=== PATIENT | female | born 1935 | race Caucasian/White ===

== ENCOUNTER → 2020-11-05 | Outpatient (CLI) | payer OTHER, MEDICARE ==
[~2020-11-05] MED LIST: ALLEGRA ALLERG180 MG PO; ASPIRIN EC81 MG PO; ATORVASTATIN CA40 MG PO; COZAAR100 MG PO; DAILY VITAMIN1 EAC2 PO; ELIQUIS2.5 MG PO; ENDOCET 10-3251 EACH PO; HYDROCODON-ACE1 EAC2 PO; LASIX20 MG PO; NORCO 10-325 T1 EACH PO; NORCO 7.5-3251 EACH PO; NORVASC 5 MG TAB5 MG PO; PERCOCET 10-321 EACH PO; PERCOCET 5-3251 EACH PO; ST. JOSEPH ASPI81 MG PO; TOPROL XL50 MG PO; VALSARTAN160 MG PO; VITAMIN D32000 UNI1 PO
[2020-11-05 11:22] LABS: HEMOGLOBIN 15.2 gm/dl (12.3-15.3); RED BLOOD COUNT 4.73 M/UL (4.00-5.10); WHITE BLOOD COUNT 7.5 K/UL (4.5-11.0)
== END ==
LOC: OPSV2 10:23 → EDSTATUS 10:30
PROVIDERS: Orthopaedic Surgery
DX: Z01.812 Encounter for preprocedural laboratory examination (principal); Z11.52 Encounter for screening for COVID-19; M16.12 Unilateral primary osteoarthritis, left hip
CPT/HCPCS: 36415; 80048; 81001; 85025; 87081; 93005

== ENCOUNTER → 2020-11-18 | Outpatient (CLI) | payer OTHER, MEDICARE | LOC: LAB 10:18 | PROVIDERS: Orthopaedic Surgery | DX: M16.12 Unilateral primary osteoarthritis, left hip (principal); I10 Essential (primary) hypertension | CPT/HCPCS: 36415; 80048; 86850; 86900; 86901 ==

== ENCOUNTER 2020-11-19 07:14 | Day surgery (SDC) | payer OTHER, MEDICARE ==
[~2020-11-19] VITALS: Ht 165.1 cm; Wt 77.1 kg
[~2020-11-19 07:14] MED LIST changes: -ASPIRIN EC81 MG PO; -DAILY VITAMIN1 EAC2 PO; -ENDOCET 10-3251 EACH PO; -HYDROCODON-ACE1 EAC2 PO
[2020-11-19] MEDS ORDERED: DAILY VITAMIN1 EAC2 PO (08:13)
[2020-11-19] MEDS ORDERED: HYDROCODON-ACE1 EAC2 PO (08:14)
[2020-11-19] MEDS ORDERED: ENDOCET 10-3251 EACH PO (12:00)
[2020-11-19] MEDS ORDERED: ELIQUIS2.5 MG PO (12:00)
[2020-11-20 06:30] LABS: RED BLOOD COUNT 4.11 M/UL (4.00-5.10); WHITE BLOOD COUNT 12.9 K/UL (4.5-11.0)
[2020-11-20] MEDS ORDERED: ASPIRIN EC81 MG PO (08:40)
== END 2020-11-20 13:24 | disposition home or self-care (01) ==
LOC: OR 07:14 → M/S 14:50 → OR 11-20 13:24
PROVIDERS: Orthopaedic Surgery
DX: M16.12 Unilateral primary osteoarthritis, left hip (principal); I12.9 Hypertensive chronic kidney disease with stage 1 through stage 4 chronic kidney disease, or unspecified chronic kidney disease; N18.30 Chronic kidney disease, stage 3 unspecified; E78.5 Hyperlipidemia, unspecified; R60.9 Edema, unspecified; Z79.899 Other long term (current) drug therapy; Z86.73 Personal history of transient ischemic attack (TIA), and cerebral infarction without residual deficits
CPT/HCPCS: 36415; 73501; 73502; 76000; 80048; 85027; 97110-GP-CQ; 97116-GP-CQ; 97161; 97166; 97535; C1776; J0171; J0690; J1100; J2370; J2405; J2704; J2795; J3010; J3370; J7030; J7050; J7120

== ENCOUNTER → 2021-12-03 | Outpatient (CLI) | payer OTHER, MEDICARE ==
[~2021-12-03] MED LIST changes: +ASPIRIN EC81 MG PO; +DAILY VITAMIN1 EAC2 PO; +ENDOCET 10-3251 EACH PO; +FUROSEMIDE20 MG PO; +HYDROCHLOROTH12.5 MG PO; +HYDROCODON-ACE1 EAC2 PO; +HYDROCODON-ACE1 EAC4 PO; +LOSARTAN POTAS100 MG PO; +LOW DOSE ASPIRI81 MG PO; +METOPROLOL SUCC50 MG PO; -NORVASC 5 MG TAB5 MG PO; +NORVASC2.5 MG PO; +VIT D 3 PO; +VITAMIN D325 MCG PO
[2021-12-03 11:33] LABS: HEMOGLOBIN 14.5 gm/dl (12.3-15.3); RED BLOOD COUNT 4.49 M/UL (4.00-5.10); WHITE BLOOD COUNT 9.2 K/UL (4.5-11.0)
== END ==
LOC: OPSV2 10:00
PROVIDERS: Orthopaedic Surgery
DX: Z01.818 Encounter for other preprocedural examination (principal); S62.102A Fracture of unspecified carpal bone, left wrist, initial encounter for closed fracture
CPT/HCPCS: 36415; 80048; 85027; 93005

== ENCOUNTER → 2021-12-04 | Day surgery (SDC) | payer OTHER, MEDICARE | END | disposition home or self-care (01) | LOC: OR 06:36 | DX: S52.572A Other intraarticular fracture of lower end of left radius, initial encounter for closed fracture (principal); E78.5 Hyperlipidemia, unspecified; I12.9 Hypertensive chronic kidney disease with stage 1 through stage 4 chronic kidney disease, or unspecified chronic kidney disease; N18.30 Chronic kidney disease, stage 3 unspecified; W01.0XXA Fall on same level from slipping, tripping and stumbling without subsequent striking against object, initial encounter; Y92.008 Other place in unspecified non-institutional (private) residence as the place of occurrence of the external cause; Z20.822 Contact with and (suspected) exposure to COVID-19; Z79.82 Long term (current) use of aspirin; Z90.49 Acquired absence of other specified parts of digestive tract; Z90.710 Acquired absence of both cervix and uterus | CPT/HCPCS: 73100; 76000; C1713; J0171; J0690; J1100; J2704; J2795; J3010; J7120 ==